=== PATIENT | male | born 1980 | race Caucasian/White ===

== ENCOUNTER 2020-12-15 10:48 | Outpatient (CLI) | payer OTHER, SELFPAY | END 2020-12-15 10:49 | disposition home or self-care (01) | LOC: ANHCOVIDVC 10:48 | DX: Z23 Encounter for immunization (principal) | CPT/HCPCS: 0001A; 91300 ==

== ENCOUNTER 2021-01-05 10:45 | Outpatient (CLI) | payer OTHER, SELFPAY | END 2021-01-05 10:46 | disposition home or self-care (01) | LOC: ANHCOVIDVC 10:45 | DX: Z23 Encounter for immunization (principal) | CPT/HCPCS: 0002A; 91300 ==

== ENCOUNTER 2024-12-23 07:09 | Day surgery (SDC) | payer OTHER, SELFPAY ==
[2024-08-08 10:06] VITALS: BMI 32.8
[2024-12-03 13:13] VITALS: BMI 31.1
--- OUTSIDE RECORDS SUMMARY | 2024-12-23 07:15 | XMS_ITS | Clinical Summary ---
Author Organization [address] Address [address] [place] [id number] Care Team Providers Care Convention Services Manager Name Role Phone No, Physician Primary Care Provider [phone] Allergies No known active allergies Medications amoxicillin-clav ulanate (Augmentin) 875-125 mg per tablet every 12 hours Active Active Problems No known active problems Immunizations Immunization Administration Dates Next Due Influenza, Quadrivalent, Spl it, Preservative Free, Intramuscular 06/14/2020 Social History Tobacco Use Types Packs/Day Years Used Date Smoking Tobacco: Never Assessed Sex and Gender Information Value Date Recorded Sex Assigned at Not on file 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 Gender Identity Not on file Sexual Orientation Not on file Obstetrics History Last Filed Vital Signs Vital Sign Reading Time Taken Comments Blood Pressure 116/68 04/19/2021 3:51 PM CDT Pulse 98 04/19/2021 3:51 PM CDT Temperature 37.1 C (98.7 F) 04/19/2021 3:51 PM CDT Respiratory Rate 16 04/19/2021 3:51 PM CDT Oxygen Saturation 98% 04/19/2021 3:51 PM CDT Inhaled Oxygen Concentration - - Weight 102.1 kg (225 lb) 04/19/2021 3:51 PM CDT Height 185.4 cm (6' 1 ) 04/19/2021 3:51 PM CDT Body Mass Index 29.69 04/19/2021 3:51 PM CDT Plan of Treatment Not on file Insurance [employer] OPEN ACCESS Care Teams Convention Services Manager Relationship Specialty Start Date End Date No, Physician PCP - General 06/14/20
--- OUTSIDE RECORDS SUMMARY | 2024-12-23 07:15 | XMS_ITS | Referral Summary ---
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
[2024-12-23 07:31] VITALS: BMI 30.8
[2024-12-23 07:32] VITALS: BP 105/81; PULSE 80; RESP 16; TEMP 36.6; O2SAT 96
--- NOTE | 2024-12-23 08:05 | WPDANESEPPF ---
Anes - Initial Pre Proc Eval Procedure: Operation Date: 12/23/24 09:00 Proposed Procedures p Screening Colonoscopy - Flex Crawford MD Date/Time: 12/23/24 08:05 Surgeon: Flex Crawford MD Pre Op Diagnosis: Neoplasm Screening Patient Data Age: 43 Gender: M Height: 1.85 m Weight: 106.1 kg Last Vital Signs Temp 36.6 C 12/23/24 07:32 Pulse 80 12/23/24 07:32 Resp 16 12/23/24 07:32 BP 105/81 12/23/24 07:32 Pulse Ox 96 12/23/24 07:32 O2 Del Method Room Air 12/23/24 07:32 Allergies Allergy/AdvReac Type Severity Reaction Status Date / Time No Known Allergies Allergy Verified 12/23/24 07:22 Home Medications ?Medication ?Instructions ?Recorded ?Confirmed ?Type multivit,calc,mins-folic 240 1 tablet PO DAILY 07/25/24 12/23/24 History mcg-vit K1 30 mcg-lycopene 300 mcg tablet (One-A-Day Men's Complete) Patient hx anesthesia problems: none Family hx anesthesia problems: none Results Review: All pre-operative results and documents have been reviewed as part of the pre-operative evaluation. [facility] Past Medical History Medical History (Updated 12/23/24 @ 08:05 by Doug Jara DO) GERD (gastroesophageal reflux disease) Surgical History Surgical History (Updated 07/25/24 @ 09:37 by Judy Fraser) No pertinent past surgical history Family History Family History (Updated 07/25/24 @ 09:38 by Judy Fraser) Grandparent Acute myocardial infarction Social History Social History (Updated 07/25/24 @ 09:38 by Judy Fraser) Social History: 07/25/24 very confident with medical forms Smoking status: Never smoker Alcohol intake: current Drinks per week: 2 Alcohol use details: Socially Substance use: never Substance use type: does not use Do You Feel Safe in your Home?: No Lack of Transportation: No Lack of Food: Never True Current Housing: I Have Housing Concerned About Future Housing: No Difficulty Paying Gas/Electric Bills: No Difficulty Paying for Meds: No Currently Unemployed: No Education: Bachelor's Degree Difficulty w/ Childcare or Family Care: No Living arrangements: with family Gender identity (if verbalized by the patient): Male Spiritual care concerns: No Agree to blood products: Yes Anes - Eval Final PreProcedure Day of Procedure 12/23/24 08:05 Patient weight: obese Heart: regular rate and rhythm Lungs: clear to auscultation Airway: Mallampati scale class III Neurological: alert and oriented Last oral intake: >/= 8 hours ASA classification: II Emergent: no Anesthetic plan: proceed Anesthesia type and monitoring: general GIVS and standard monitoring Results Review: All pre-operative results and documents have been reviewed as part of the pre-operative evaluation. Informed Consent: The patient's anesthetic plan and its attendant risks and benefits were discussed with the patient/family/POA. Questions were solicited and answers provided to the satisfaction of the patient/family/POA.
--- NOTE | 2024-12-23 09:07 | PM.IMHP ---
H&P: HPI History of Present Illness Date/Time: 12/23/24 09:07 Chief Complaint: Screening colonoscopy Narrative: This is the patient's first colonoscopy. There are no GI symptoms and there is no family history of colorectal cancer. Review of Systems Review of Systems: All systems reviewed & are unremarkable except as noted in HPI and below [facility] Past Medical History Medical History (Updated 12/23/24 @ 09:08 by Flex Crawford MD) GERD (gastroesophageal reflux disease) Surgical History Surgical History (Updated 07/25/24 @ 09:37 by Judy Fraser) No pertinent past surgical history Family History Family History (Updated 07/25/24 @ 09:38 by Judy Fraser) Grandparent Acute myocardial infarction Social History Social History (Updated 07/25/24 @ 09:38 by Judy Fraser) Social History: 07/25/24 very confident with medical forms Smoking status: Never smoker Alcohol intake: current Drinks per week: 2 Alcohol use details: Socially Substance use: never Substance use type: does not use Do You Feel Safe in your Home?: No Lack of Transportation: No Lack of Food: Never True Current Housing: I Have Housing Concerned About Future Housing: No Difficulty Paying Gas/Electric Bills: No Difficulty Paying for Meds: No Currently Unemployed: No Education: Bachelor's Degree Difficulty w/ Childcare or Family Care: No Living arrangements: with family Gender identity (if verbalized by the patient): Male Spiritual care concerns: No Agree to blood products: Yes Meds Home Medications and Allergies Home Medications ?Medication ?Instructions ?Recorded ?Confirmed ?Type multivit,calc,mins-folic 240 1 tablet PO DAILY 07/25/24 12/23/24 History mcg-vit K1 30 mcg-lycopene 300 mcg tablet (One-A-Day Men's Complete) Allergies Allergy/AdvReac Type Severity Reaction Status Date / Time No Known Allergies Allergy Verified 12/23/24 07:22 Vital Signs Vital Signs - 24 hr 12/23/24 07:32 Temperature 97.8 F Pulse Rate 80 Respiratory Rate 16 Blood Pressure 105/81 Pulse Oximetry 96 Oxygen Delivery Room Air Exam Const: General: cooperative and healthy appearing Resp: Effort & Inspection: normal respiratory effort and able to speak in complete sentences Auscultation: clear to auscultation bilaterally Cardio: Rate: regular rate Rhythm: regular rhythm GI: Inspection: normal to inspection GI Palp: No No hepatosplenomegaly present Auscultation: normal bowel sounds Rectal Exam: deferred Skin: General skin exam: normal color Psych: Appearance: grossly normal Mental Status: mental status grossly normal Assessment and Plan Assessment and plan (1) Encounter for screening colonoscopy: Code(s): Z12.11 - Encounter for screening for malignant neoplasm of colon Status: Acute
[2024-12-23] MEDS: LACTATED RINGERS 1,000 ML 150 ML IV CONT (09:13)
[2024-12-23 09:29] VITALS: BP 101/75; PULSE 97; RESP 14; O2SAT 92
[2024-12-23 09:39] VITALS: BP 103/75; PULSE 82; RESP 16; O2SAT 94
[2024-12-23 09:49] VITALS: BP 110/74; PULSE 72; RESP 18; O2SAT 97
--- NOTE | 2024-12-23 12:21 | WPDANESPN ---
Anes - Prog Note Post-Op Date/Time: 12/23/24 12:21 Cardiovascular status: normal Respiratory status: normal Airway patency: baseline Mental status: baseline Post-Op hydration status: normal Vital Signs: Last Vital Signs Temp 36.6 C 12/23/24 07:32 Pulse 72 12/23/24 09:49 Resp 18 12/23/24 09:49 BP 110/74 12/23/24 09:49 Pulse Ox 97 12/23/24 09:49 O2 Del Method Room Air 12/23/24 09:39 Pain Score (VAS): 0 I/O: Intake & Output 12/22/24 12/23/24 12/23/24 23:59 07:59 15:59 Intake Total 400 Balance 400 Post-procedural complaints: none Patient Feedback: Patient satisfied with anesthetic care. Other Findings: Patient vital signs back to baseline. Patient denies nausea and vomiting. Patient's pain under control. Patient OK for discharge.
== END 2024-12-23 09:58 | disposition home or self-care (01) ==
PROVIDERS: PCP Nurse Practitioner Family; Referring Provider Nurse Practitioner Family; Visit Provider Internal Medicine Gastroenterology
PROC: 0DJD8ZZ Inspection of Lower Intestinal Tract, Via Natural or Artificial Opening Endoscopic (ICD-10-PCS; CPT 45378; principal; 2024-12-23 09:00)
DX: Z12.11 Encounter for screening for malignant neoplasm of colon (principal)
CPT/HCPCS: 45378